=== PATIENT | female | born 1955 | race Caucasian/White ===

== ENCOUNTER 2023-05-10 10:36 | Outpatient (CLI) | payer MEDICARE, SELFPAY ==
--- NOTE | ~2023-05-10 | XR_ITS ---
EXAMINATION: XR lumbar spine 2-3V DATE: 05/10/2023 11:07 INDICATION: Low back pain TECHNIQUE: Anteroposterior and lateral views of the lumbar spine, and cone-down lateral view of the l umbosacral junction were obtained. COMPARISON: None. FINDINGS: There are 3 mm of anterolisthesis of L3 on L4. The vertebral body heights are maintained. T here is severe loss of intervertebral disc space height at L4-5 and L5-S1. Small degenerative osteoph ytes project from the anterior endplates of multiple vertebral bodies. There is severe facet joint os teoarthritis of the mid and lower lumbar spine. There is no fracture. Surgical clips in the right upp er quadrant are likely from prior cholecystectomy. Surgical clips are also noted in the right abdomen . There appears to be at least moderate neuroforaminal stenosis at L4-5 and L5-S1. IMPRESSION: 1. Moderate lumbar spondylosis without acute findings. Reviewed, dictated and finalized at location F.
== END 2023-05-10 10:37 | disposition home or self-care (01) ==
LOC: CHSIMG 10:43
PROVIDERS: PCP Internal Medicine; Visit Provider Internal Medicine
DX: M54.32 Sciatica, left side (principal); M54.50 Low back pain, unspecified; M43.06 Spondylolysis, lumbar region
CPT/HCPCS: 72100

== ENCOUNTER 2023-05-31 07:34 | Outpatient (CLI) | payer MEDICARE, SELFPAY ==
--- NOTE | ~2023-05-31 | MR_ITS ---
MRI of the lumbar spine Clinical History: Back pain Technique: Axial T2-weighted images, and sagittal T1-weighted, T2-weighted, and T2 fat-sat images wer e acquired. Findings: No fracture identified. There is 3 mm anterolisthesis of L3 over L4. There are intraosseous hemangiomas in the L2 and L4 vertebral bodies. No suspicious bone marrow signal abnormality seen. At L1-L2, there is no disc bulge or herniation. There is mild to moderate facet arthropathy. No centr al canal stenosis or neural foraminal narrowing. At L2-L3, there is no disc bulge. There is severe facet arthropathy. No kelsey central canal stenosis. There is mild left neural foraminal narrowing. Right neural foramen preserved. At L3-L4, there is disc bulge and severe facet arthropathy, resulting in severe spinal canal stenosis /thecal sac compression. There is moderate right neural foraminal narrowing. Left neural foramen pres erved. At L4-L5, there is disc bulge and severe facet arthropathy, resulting in moderate to severe spinal ca nal stenosis/thecal sac compression. There is severe right neural foraminal narrowing, and moderate l eft neural foraminal narrowing. At L5-S1, there is disc bulge, with mild facet arthropathy. No central canal stenosis or definite armani ral foraminal narrowing. Paravertebral soft tissues are unremarkable. Impression: Severe degenerative spondylosis at L3-L4 and L4-L5. Mild degenerative changes in the remainder of the lumbar spine. 3 mm anterolisthesis of L3 over L4. Reviewed, dictated and finalized at [facility]. [employer]ER HELPER Impression: Severe degenerative spondylosis at L3-L4 and L4-L5. Mild degenerative changes in the remainder of the lumbar spine. 3 mm anterolisthesis of L3 over L4.
== END 2023-05-31 07:35 | disposition home or self-care (01) ==
PROVIDERS: PCP Internal Medicine; Visit Provider Internal Medicine
DX: M54.50 Low back pain, unspecified (principal); M43.06 Spondylolysis, lumbar region
CPT/HCPCS: 72148

== ENCOUNTER 2023-07-04 11:50 | Outpatient (CLI) | payer MEDICARE, SELFPAY ==
--- NOTE | ~2023-07-04 | XR_ITS ---
Clinical Indication: Preoperative evaluation PA and lateral views of the chest: Comparison: 11/08/2018 Findings: Stable calcified right midlung granuloma. The lungs are otherwise clear, without evidence o f focal consolidation or pleural effusion. Cardiomediastinal silhouette is within normal limits. Bon es and soft tissues are unremarkable. Impression: No significant abnormality seen. Reviewed, dictated and finalized at location . [employer] Impression: No significant abnormality seen.
== END 2023-07-04 11:51 | disposition home or self-care (01) ==
LOC: CHSIMG 11:53
PROVIDERS: PCP Internal Medicine; Visit Provider Internal Medicine
DX: Z01.818 Encounter for other preprocedural examination (principal)
CPT/HCPCS: 71046

== ENCOUNTER 2023-07-17 13:59 | Outpatient (CLI) | payer MEDICARE, SELFPAY ==
--- NOTE | ~2023-07-17 | CT_ITS ---
EXAMINATION: CT lumbar spine wo con DATE: 07/17/2023 14:33 INDICATION: Low back pain TECHNIQUE: Computed tomography (CT) of the lumbar spine was performed without intravenous contrast. A utomated exposure control and iterative reconstruction technique were employed. The dose-length produ ct was 1591.80 mGy-cm. COMPARISON: Lumbar spine MR dated 05/31/2023 FINDINGS: 3 mm anterolisthesis L3 on L4. Vertebral body heights are normal. Large radiolucent hemangiomas with characteristic T1 hyperintense fat signal on prior MRI at the L2 and L4 vertebral bodies. Small scler otic bone island at L1. Severe disc height loss at L4-L5 and L5-S1. Moderately decreased disc height loss at T11-T12 and T12-L1 and mild disc height loss at L1-L2 and L3-L4. Small posterior layering rig ht pleural effusion. A few splenic calcifications consistent with old granulomatous disease. Cholecys tectomy clips the gallbladder fossa. 7 mm high attenuation left renal proteinaceous/hemorrhagic cyst. Retrocecal surgical clips likely related to prior appendectomy. The following disc levels are specif ically discussed: T11-T12: Disc is mildly bulging. There is severe bilateral facet joint osteoarthritis. There is moder ate bilateral neural foraminal stenosis. There is mild central canal stenosis. T12-L1: Disc is bulging. There is mild to moderate bilateral facet joint osteoarthritis. There is mil d left neural foraminal stenosis. There is mild central canal stenosis. L1-L2: Disc is mildly bulging. There is moderate left and severe right facet joint osteoarthritis. Th ere is mild bilateral neural foraminal stenosis. There is mild central canal stenosis. L2-L3: Disc is bulging with superimposed left foraminal zone disc protrusion. There is severe bilater al facet joint osteoarthritis. There is mild right and moderate left neural foraminal stenosis. There is mild central canal stenosis. L3-L4: Disc is mildly bulging. There is severe bilateral facet joint osteoarthritis. There is mild to moderate bilateral neural foraminal stenosis. There is severe central canal stenosis. L4-L5: Disc is bulging with small endplate osteophytes. There is moderate to severe bilateral facet j oint osteoarthritis. There is moderate to severe bilateral neural foraminal stenosis. There is modera te to severe central canal stenosis. L5-S1: Disc is bulging. There is moderate bilateral facet joint osteoarthritis. There is mild left an d moderate right neural foraminal stenosis. There is no central canal stenosis. IMPRESSION: 1. Severe lower lumbar predominant spondylosis. Reviewed, dictated and finalized at location A. DYER
== END 2023-07-17 14:00 | disposition home or self-care (01) ==
LOC: CHSIMG 14:00
PROVIDERS: PCP Internal Medicine
DX: M43.16 Spondylolisthesis, lumbar region (principal)
CPT/HCPCS: 72131

== ENCOUNTER 2023-07-26 08:30 | Outpatient (CLI) | payer MEDICARE, SELFPAY ==
--- NOTE | ~2023-07-26 | CT_ITS ---
EXAMINATION: CT lumbar spine wo con DATE: 07/26/2023 09:02 INDICATION: Lumbar spondylolisthesis. TECHNIQUE: Computed tomography (CT) of the lumbar spine was performed without intravenous contrast. A utomated exposure control and iterative reconstruction technique were employed. The dose-length produ ct was 1280.41 mGy-cm. COMPARISON: CT lumbar spine 07/17/23 FINDINGS: There is 5 degrees dextrocurvature of thoracic lumbar spine. There is 3 mm anterolisthesis of L3 on L4. There are hemangiomas in L2 and L4 vertebral bodies. Vertebral body heights are normal. There is severely decreased disc height at T11-T12 and T12-L1, mildly decreased disc height at L1-L2, and severely decreased disc height at L4-L5 and L5-S1. There are changes of anterior and posterior f usion procedures at L3-L4 with interbody devices and pedicle screws. The following disc levels are sp ecifically discussed: L1-L2: The disc is bulging. There is severe bilateral facet joint osteoarthritis. There is mild bilat eral neural foraminal stenosis. There is mild central canal stenosis. L2-L3: The disc is bulging. There is severe bilateral facet joint osteoarthritis. There is mild bilat eral neural foraminal stenosis. There is no central canal stenosis. L3-L4: There is severe left facet joint osteoarthritis. There is mild bilateral neural foraminal sten osis with posterior decompression on the right. There is mild central canal stenosis with posterior d ecompression. L4-L5: The disc is bulging. There is severe bilateral facet joint osteoarthritis. There is moderate b ilateral neural foraminal stenosis. There is mild central canal stenosis. There is moderate stenosis of left lateral recess. L5-S1: The disc is bulging. There is severe bilateral facet joint osteoarthritis. There is moderate r ight and mild left neural foraminal stenosis. There is mild central canal stenosis. IMPRESSION: 1. Severe lumbar spondylosis. 2. Anterior and posterior fusion procedures at L3-L4. Reviewed, dictated and finalized at location A. RVISORY FORESTER
== END 2023-07-26 08:31 | disposition home or self-care (01) ==
LOC: CHSIMG 08:33
PROVIDERS: PCP Internal Medicine
DX: M43.16 Spondylolisthesis, lumbar region (principal); Z98.1 Arthrodesis status
CPT/HCPCS: 72131